=== PATIENT | male | born 1985 | race African-American/Black ===

== ENCOUNTER → 2017-02-23 | Outpatient (CLI) | payer MEDICARE, OTHER ==
[~2017-02-23] MED LIST: HALO2 PO; HYDR25TA PO; LISI10TA7 PO; OLAN10TA3 PO
[2017-02-23 12:26] LABS: BASOPHILS % (AUTO) 0.6 % (0.0-2.0); EOSINOPHILS % (AUTO) 1.6 % (1.0-6.0); HEMOGLOBIN 15.4 g/dL (13.5-17.5); LYMPHOCYTES # (AUTO) 1.8 K/uL (1.0-4.8); LYMPHOCYTES % (AUTO) 27.5 % (22.0-44.0); MEAN CORPUSCULAR HEMOGLOBIN 30.6 pg (26.0-34.0); MEAN CORPUSCULAR HGB CONC 34.2 G/dL (31.0-37.0); MEAN CORPUSCULAR VOLUME 89 fL (80-100); MONOCYTES # (AUTO) 0.6 K/uL (0.1-1.0); MONOCYTES % (AUTO) 9.3 % (2.0-9.0); PLATELET COUNT (AUTO) 233 K/uL (150-450); RED BLOOD CELL COUNT(AUTO) 5.04 MIL/uL (4.50-5.90); WHITE BLOOD COUNT (AUTO) 6.5 K/uL (4.5-11.0)
[2017-02-23 12:35] LABS: ALANINE AMINOTRANSFERASE 57 U/L (12-78); ALBUMIN 4.1 g/dL (3.4-5.0); ANION GAP 9 mmol/L (8-16); ASPARTATE AMINOTRANSFERASE 42 U/L (15-37); BILIRUBIN,TOTAL 0.4 mg/dL (0.1-1.0); CARBON DIOXIDE 28 mmol/L (22-29); CHLORIDE 102 mmol/L (98-107); CHOL/HDL RATIO 6.2 (4.2-7.3); CREATININE 1.17 mg/dL (0.60-1.30); GLOMERULAR FILTR. RATE CALC > 60 mL/min (>60); POTASSIUM 3.6 mmol/L (3.5-5.1); SODIUM SERUM 139 mmol/L (136-145); TOTAL PROTEIN, SERUM 7.7 g/dL (6.4-8.2); UREA NITROGEN, BLOOD 18 mg/dL (7-18)
[2017-02-23 13:08] LABS: B-TYPE NATRIURETIC PEPTIDE < 5 pg/mL (0-100)
== END | disposition home or self-care (01) ==
LOC: LABPV 11:24
PROVIDERS: ATTEND Internal Medicine Cardiovascular Disease
DX: I11.0 Hypertensive heart disease with heart failure (principal); I50.9 Heart failure, unspecified; E11.8 Type 2 diabetes mellitus with unspecified complications; E55.9 Vitamin D deficiency, unspecified

== ENCOUNTER 2017-12-11 00:25 | Inpatient (IN) | payer MEDICARE, MEDICAID ==
[~2017-12-11] VITALS: Ht 180.3 cm; Wt 103.9 kg
[2017-12-11] MEDS ORDERED: PRAZ1 PO (01:09)
[2017-12-11] MEDS ORDERED: CITA-106 PO ×2 (01:09→10:06)
[2017-12-11] MEDS ORDERED: LURA60TA PO ×2 (01:09→10:04)
[2017-12-11] MEDS ORDERED: MINO50TA PO (01:09)
[2017-12-11 02:54] LABS: AMPHET/METH SCREEN,URINE NEGATIVE (NEGATIVE); BARBITURATE SCREEN, URINE NEGATIVE (NEGATIVE); BENZODIAZEPINES SCREEN,URINE NEGATIVE (NEGATIVE); CANNABINOID SCREEN,URINE NEGATIVE (NEGATIVE); COCAINE SCREEN,URINE NEGATIVE (NEGATIVE); METHADONE SCREEN, URINE NEGATIVE (NEGATIVE); OPIATE SCREEN,URINE NEGATIVE (NEGATIVE)
[2017-12-11 03:01] LABS: PHENCYCLIDINE SCREEN,URINE NEGATIVE (NEGATIVE)
[2017-12-11] MEDS ORDERED: LORazepam 2 MG/ML VIAL ONE (06:15)
[2017-12-11] MEDS ORDERED: DiphenhydrAMINE HCL 50 MG/ML VIAL IM ONE (06:15)
[2017-12-11] MEDS ORDERED: HALOPERIDOL LACTATE 5 MG/ML VIAL IM ONE (06:15)
[2017-12-11] MEDS ORDERED: LORazepam 2 MG/ML VIAL IM ONE (06:15)
[2017-12-11] MEDS ORDERED: DiphenhydrAMINE HCL 50 MG/ML VIAL ONE (06:16)
[2017-12-11] MEDS ORDERED: HALOPERIDOL LACTATE 5 MG/ML VIAL ONE (06:16)
[2017-12-11] MEDS ORDERED: AMLO-512 PO ×2 (07:11→10:08)
[2017-12-11] MEDS ORDERED: OLAN5TAB2 PO (10:04)
[2017-12-11] MEDS ORDERED: LISI-662 PO (10:04)
[2017-12-11] MEDS ORDERED: MINO50CA36 PO (10:04)
[2017-12-11] MEDS ORDERED: PRAZ2 PO (10:04)
[2017-12-11] MEDS ORDERED: HYDR25TA PO (10:04)
[2017-12-11] MEDS ORDERED: CARV12 PO (10:08)
[2017-12-11] MEDS ORDERED: IBUPROFEN 400 MG TABLET PO PRN (15:45)
[2017-12-11] MEDS ORDERED: LOPERAMIDE HCL 2 MG CAPSULE PO PRN (15:45)
[2017-12-11] MEDS ORDERED: MAGNESIUM HYDROXIDE SUSPENSION 30 ML UDCUP PO PRN (15:45)
[2017-12-11] MEDS ORDERED: MAG HYDROX/AL HYDROX/SIMETH ES 30 ML SUSPENSION UDCUP PO PRN (15:45)
[2017-12-11] MEDS ORDERED: ACETAMINOPHEN 325 MG TABLET PO PRN (15:45)
[2017-12-11] MEDS ORDERED: ONDANSETRON HCL 4 MG TABLET PO PRN (15:45)
[2017-12-11] MEDS ORDERED: PETROLATUM,WHITE 71 GM JELLY TP PRN (15:45)
[2017-12-11] MEDS ORDERED: ALBUTEROL SULFATE HFA 90 MCG/PUFF 8 GM INHALER IH PRN (15:45)
[2017-12-11] MEDS ORDERED: CloNIDine HCL 0.1 MG TABLET PO PRN (15:45)
[2017-12-11] MEDS ORDERED: DOCUSATE SODIUM 100 MG CAPSULE PO PRN (15:45)
[2017-12-11] MEDS: LORazepam 2 MG TABLET PO PRN (19:47)
[2017-12-11] MEDS: LISINOPRIL 20 MG TABLET PO SCH (19:47)
[2017-12-11 19:55] VITALS: BP 165/91
[2017-12-11 21:00] VITALS: BP 137/88
[2017-12-11] MEDS: ZOLPIDEM TARTRATE 10 MG TABLET PO PRN (22:23)
[2017-12-12 02:19] VITALS: BP 139/90
[2017-12-12 08:39] VITALS: BP 143/96
[2017-12-12] MEDS: LISINOPRIL 20 MG TABLET PO SCH ×2 (08:40→16:40)
[2017-12-12] MEDS: AmLODIPine BESYLATE 10 MG TABLET PO SCH (08:40)
[2017-12-12] MEDS: CARVEDILOL 12.5 MG TABLET PO SCH (08:41)
[2017-12-12] MEDS: MINOCYCLINE HCL 50 MG CAPSULE PO SCH (08:42)
[2017-12-12] MEDS: NICOTINE 14 MG/24 HOUR PATCH TD SCH (08:43)
[2017-12-12 09:24] LABS: BASOPHILS % (AUTO) 0.5 % (0.0-2.0); EOSINOPHILS % (AUTO) 0.7 % (1.0-6.0); HEMATOCRIT 39.5 % (41-53); LYMPHOCYTES # (AUTO) 1.9 K/uL (1.0-4.8); LYMPHOCYTES % (AUTO) 19.5 % (22.0-44.0); MEAN CORPUSCULAR HGB CONC 35.4 G/dL (31.0-37.0); MEAN CORPUSCULAR VOLUME 88 fL (80-100); MONOCYTES # (AUTO) 1.1 K/uL (0.1-1.0); MONOCYTES % (AUTO) 11.9 % (2.0-9.0); NEUTROPHILS # (AUTO) 6.4 K/uL (1.8-7.7); NEUTROPHILS % (AUTO) 67.4 % (40.0-70.0); PLATELET COUNT (AUTO) 267 K/uL (150-450); RED CELL DISTRIBUTION WIDTH 12.7 % (11.5-14.5)
[2017-12-12 09:37] LABS: HEMOGLOBIN A1C 5.6 % (4.5-6.2)
[2017-12-12 09:58] LABS: ALANINE AMINOTRANSFERASE 85 U/L (12-78); ALBUMIN 3.8 g/dL (3.4-5.0); ALKALINE PHOSPHATASE 90 U/L (46-116); ANION GAP 10 mmol/L (8-16); ASPARTATE AMINOTRANSFERASE 128 U/L (15-37); BILIRUBIN,TOTAL 0.5 mg/dL (0.1-1.0); CALCIUM, TOTAL 9.1 mg/dL (8.8-10.5); CARBON DIOXIDE 26 mmol/L (22-29); CHLORIDE 99 mmol/L (98-107); CHOL/HDL RATIO 5.1 (4.2-7.3); CHOLESTEROL 133 mg/dL (131-200); CREATININE 0.96 mg/dL (0.60-1.30); GLOMERULAR FILTR. RATE CALC > 60 mL/min (>60); GLUCOSE,RANDOM 111 mg/dL (70-110); HDL CHOLESTEROL 26 mg/dL (40-60); LDL CHOL (CALC.) 89 mg/dL (0-130); POTASSIUM 3.4 mmol/L (3.5-5.1); SODIUM SERUM 135 mmol/L (136-145); THYROID STIMULATING HORMONE 1.51 uIU/mL (0.36-3.74); TOTAL PROTEIN, SERUM 7.6 g/dL (6.4-8.2); TRIGLYCERIDES 90 mg/dL (15-150); UREA NITROGEN, BLOOD 13 mg/dL (7-18)
[2017-12-12] MEDS: ARIPiprazole 15 MG TABLET PO SCH (10:27)
[2017-12-12] MEDS: CITALOPRAM HYDROBROMIDE 20 MG TABLET PO SCH (10:27)
[2017-12-12 16:00] VITALS: BP 135/87
[2017-12-12] MEDS ORDERED: POTASSIUM CHLORIDE 20 MEQ ER TABLET PO ONE (16:15)
[2017-12-12] MEDS: LORazepam 2 MG TABLET PO PRN (16:40)
[2017-12-12] MEDS: ZOLPIDEM TARTRATE 10 MG TABLET PO PRN (21:17)
[2017-12-12] MEDS: OLANZapine 10 MG TABLET PO SCH (21:17)
[2017-12-13 05:54] VITALS: BP 142/88
[2017-12-13 08:05] VITALS: BP 160/96
[2017-12-13] MEDS: ARIPiprazole 15 MG TABLET PO SCH (08:32)
[2017-12-13] MEDS: CARVEDILOL 12.5 MG TABLET PO SCH (08:32)
[2017-12-13] MEDS: CITALOPRAM HYDROBROMIDE 20 MG TABLET PO SCH (08:32)
[2017-12-13] MEDS: LISINOPRIL 20 MG TABLET PO SCH ×2 (08:32→16:36)
[2017-12-13] MEDS: AmLODIPine BESYLATE 10 MG TABLET PO SCH (08:32)
[2017-12-13] MEDS: NICOTINE 14 MG/24 HOUR PATCH TD SCH (08:33)
[2017-12-13] MEDS: MINOCYCLINE HCL 50 MG CAPSULE PO SCH (08:33)
[2017-12-13] MEDS ORDERED: POTASSIUM CHLORIDE 20 MEQ ER TABLET PO ONE (09:15)
[2017-12-13 20:46] VITALS: BP 145/97
[2017-12-13] MEDS: ZOLPIDEM TARTRATE 10 MG TABLET PO PRN (21:29)
[2017-12-13] MEDS: OLANZapine 10 MG TABLET PO SCH (21:29)
[2017-12-14 00:20] VITALS: BP 130/95
[2017-12-14 08:08] VITALS: BP 139/90
[2017-12-14] MEDS: NICOTINE 14 MG/24 HOUR PATCH TD SCH (09:00)
[2017-12-14] MEDS: ARIPiprazole 15 MG TABLET PO SCH (09:06)
[2017-12-14] MEDS: CITALOPRAM HYDROBROMIDE 20 MG TABLET PO SCH (09:06)
[2017-12-14] MEDS: LISINOPRIL 20 MG TABLET PO SCH ×2 (09:06→16:49)
[2017-12-14] MEDS: CARVEDILOL 12.5 MG TABLET PO SCH (09:06)
[2017-12-14] MEDS: AmLODIPine BESYLATE 10 MG TABLET PO SCH (09:06)
[2017-12-14] MEDS: MINOCYCLINE HCL 50 MG CAPSULE PO SCH (09:06)
[2017-12-14 16:00] VITALS: BP 143/87
[2017-12-14] MEDS: LORazepam 2 MG TABLET PO PRN ×2 (16:49→20:58)
[2017-12-14] MEDS: OLANZapine 10 MG TABLET PO SCH (20:58)
[2017-12-14] MEDS: ZOLPIDEM TARTRATE 10 MG TABLET PO PRN (20:59)
[2017-12-15 06:38] VITALS: BP 136/86
[2017-12-15 08:28] VITALS: BP 140/89
[2017-12-15] MEDS: NICOTINE 14 MG/24 HOUR PATCH TD SCH (09:00)
[2017-12-15] MEDS: ARIPiprazole 15 MG TABLET PO SCH (09:04)
[2017-12-15] MEDS: CARVEDILOL 12.5 MG TABLET PO SCH (09:04)
[2017-12-15] MEDS: AmLODIPine BESYLATE 10 MG TABLET PO SCH (09:04)
[2017-12-15] MEDS: CITALOPRAM HYDROBROMIDE 20 MG TABLET PO SCH (09:04)
[2017-12-15] MEDS: LISINOPRIL 20 MG TABLET PO SCH ×2 (09:04→16:38)
[2017-12-15] MEDS: MINOCYCLINE HCL 50 MG CAPSULE PO SCH (09:05)
[2017-12-15] MEDS: LORazepam 2 MG TABLET PO PRN ×2 (16:38→20:55)
[2017-12-15] MEDS: HALOPERIDOL 5 MG TABLET PO PRN (16:38)
[2017-12-15 18:00] VITALS: BP 135/85
[2017-12-15] MEDS: ZOLPIDEM TARTRATE 10 MG TABLET PO PRN (20:55)
[2017-12-15] MEDS: OLANZapine 10 MG TABLET PO SCH (20:55)
[2017-12-16 05:10] VITALS: BP 138/78
[2017-12-16 08:26] VITALS: BP 146/99
[2017-12-16] MEDS: MINOCYCLINE HCL 50 MG CAPSULE PO SCH (08:34)
[2017-12-16] MEDS: CARVEDILOL 12.5 MG TABLET PO SCH (08:35)
[2017-12-16] MEDS: AmLODIPine BESYLATE 10 MG TABLET PO SCH (08:35)
[2017-12-16] MEDS: CITALOPRAM HYDROBROMIDE 20 MG TABLET PO SCH (08:35)
[2017-12-16] MEDS: ARIPiprazole 15 MG TABLET PO SCH (08:35)
[2017-12-16] MEDS: LISINOPRIL 20 MG TABLET PO SCH ×2 (08:35→16:31)
[2017-12-16] MEDS: NICOTINE 14 MG/24 HOUR PATCH TD SCH (08:41)
[2017-12-16 16:00] VITALS: BP 144/90
[2017-12-16] MEDS: HALOPERIDOL 5 MG TABLET PO PRN (16:31)
[2017-12-16] MEDS: LORazepam 2 MG TABLET PO PRN ×2 (16:32→20:48)
[2017-12-16] MEDS: ZOLPIDEM TARTRATE 10 MG TABLET PO PRN (20:48)
[2017-12-16] MEDS: OLANZapine 10 MG TABLET PO SCH (20:48)
[2017-12-17 03:59] VITALS: BP 142/90
[2017-12-17 07:52] VITALS: BP 132/78
[2017-12-17] MEDS: LISINOPRIL 20 MG TABLET PO SCH ×2 (08:49→16:17)
[2017-12-17] MEDS: MINOCYCLINE HCL 50 MG CAPSULE PO SCH (08:49)
[2017-12-17] MEDS: AmLODIPine BESYLATE 10 MG TABLET PO SCH (08:49)
[2017-12-17] MEDS: CARVEDILOL 12.5 MG TABLET PO SCH (08:49)
[2017-12-17] MEDS: NICOTINE 14 MG/24 HOUR PATCH TD SCH (08:49)
[2017-12-17] MEDS: CITALOPRAM HYDROBROMIDE 20 MG TABLET PO SCH (08:49)
[2017-12-17] MEDS: ARIPiprazole 15 MG TABLET PO SCH (08:49)
[2017-12-17 13:05] VITALS: BP 132/78
[2017-12-17] MEDS: OLANZapine 10 MG TABLET PO SCH (20:35)
[2017-12-17 21:20] VITALS: BP 170/93
[2017-12-18 00:07] VITALS: BP 138/92
[2017-12-18 08:45] VITALS: BP 138/96
[2017-12-18] MEDS: NICOTINE 14 MG/24 HOUR PATCH TD SCH (09:00)
[2017-12-18] MEDS: MINOCYCLINE HCL 50 MG CAPSULE PO SCH (10:19)
[2017-12-18] MEDS: CARVEDILOL 12.5 MG TABLET PO SCH (10:19)
[2017-12-18] MEDS: LISINOPRIL 20 MG TABLET PO SCH ×2 (10:19→17:19)
[2017-12-18] MEDS: AmLODIPine BESYLATE 10 MG TABLET PO SCH (10:19)
[2017-12-18] MEDS: CITALOPRAM HYDROBROMIDE 20 MG TABLET PO SCH (10:19)
[2017-12-18] MEDS: ARIPiprazole 15 MG TABLET PO SCH (10:19)
[2017-12-18 16:13] VITALS: BP 144/84
[2017-12-18] MEDS: OLANZapine 10 MG TABLET PO SCH (20:54)
[2017-12-19 03:26] VITALS: BP 150/93
[2017-12-19 08:09] VITALS: BP 158/88
[2017-12-19] MEDS: CARVEDILOL 12.5 MG TABLET PO SCH (08:48)
[2017-12-19] MEDS: CITALOPRAM HYDROBROMIDE 20 MG TABLET PO SCH (08:48)
[2017-12-19] MEDS: ARIPiprazole 15 MG TABLET PO SCH (08:48)
[2017-12-19] MEDS: LISINOPRIL 20 MG TABLET PO SCH ×2 (08:48→17:00)
[2017-12-19] MEDS: AmLODIPine BESYLATE 10 MG TABLET PO SCH (08:48)
[2017-12-19] MEDS: MINOCYCLINE HCL 50 MG CAPSULE PO SCH (08:49)
[2017-12-19 10:07] VITALS: BP 145/89
[2017-12-19 16:09] VITALS: BP 148/90
[2017-12-19] MEDS: HALOPERIDOL 5 MG TABLET PO PRN (17:00)
[2017-12-19] MEDS: LORazepam 2 MG TABLET PO PRN (17:00)
[2017-12-19] MEDS: ZOLPIDEM TARTRATE 10 MG TABLET PO PRN (21:04)
[2017-12-19] MEDS: OLANZapine 10 MG TABLET PO SCH (21:04)
[2017-12-20 06:05] VITALS: BP 140/89
[2017-12-20 08:48] VITALS: BP 151/92
[2017-12-20] MEDS: MINOCYCLINE HCL 50 MG CAPSULE PO SCH (09:00)
[2017-12-20] MEDS: LISINOPRIL 20 MG TABLET PO SCH ×2 (09:00→16:51)
[2017-12-20] MEDS: ARIPiprazole 15 MG TABLET PO SCH (09:00)
[2017-12-20] MEDS: CITALOPRAM HYDROBROMIDE 20 MG TABLET PO SCH (09:00)
[2017-12-20] MEDS: CARVEDILOL 12.5 MG TABLET PO SCH (09:00)
[2017-12-20] MEDS: AmLODIPine BESYLATE 10 MG TABLET PO SCH (09:00)
[2017-12-20] MEDS ORDERED: DiphenhydrAMINE HCL 50 MG/ML VIAL ONE (13:49)
[2017-12-20] MEDS ORDERED: LORazepam 2 MG/ML VIAL ONE (13:49)
[2017-12-20] MEDS ORDERED: HALOPERIDOL LACTATE 5 MG/ML VIAL ONE (13:49)
[2017-12-20] MEDS ORDERED: HALOPERIDOL LACTATE 5 MG/ML VIAL IM ONE (14:00)
[2017-12-20] MEDS ORDERED: LORazepam 2 MG/ML VIAL IM ONE (14:00)
[2017-12-20] MEDS ORDERED: DiphenhydrAMINE HCL 50 MG/ML VIAL IM ONE (14:00)
[2017-12-20 15:04] VITALS: BP 163/97
[2017-12-20 16:00] VITALS: BP 141/88
[2017-12-20] MEDS: LORazepam 2 MG TABLET PO PRN (16:51)
[2017-12-20] MEDS: HALOPERIDOL 5 MG TABLET PO PRN (16:51)
[2017-12-20] MEDS: OLANZapine 10 MG TABLET PO SCH (21:00)
[2017-12-21 06:02] VITALS: BP 144/91
[2017-12-21 08:26] VITALS: BP 153/96
[2017-12-21] MEDS: LORazepam 2 MG TABLET PO PRN ×2 (08:46→16:40)
[2017-12-21] MEDS: ARIPiprazole 15 MG TABLET PO SCH (08:46)
[2017-12-21] MEDS: AmLODIPine BESYLATE 10 MG TABLET PO SCH (08:46)
[2017-12-21] MEDS: LISINOPRIL 20 MG TABLET PO SCH ×2 (08:46→16:40)
[2017-12-21] MEDS: CARVEDILOL 12.5 MG TABLET PO SCH (08:46)
[2017-12-21] MEDS: CITALOPRAM HYDROBROMIDE 20 MG TABLET PO SCH (08:46)
[2017-12-21] MEDS: MINOCYCLINE HCL 50 MG CAPSULE PO SCH (08:46)
[2017-12-21 13:05] VITALS: BP 138/78
[2017-12-21 16:00] VITALS: BP 142/84
[2017-12-21] MEDS: HALOPERIDOL 5 MG TABLET PO PRN (16:40)
[2017-12-21] MEDS: OLANZapine 10 MG TABLET PO SCH (20:46)
[2017-12-21] MEDS: ZOLPIDEM TARTRATE 10 MG TABLET PO PRN (20:46)
[2017-12-22 05:28] VITALS: BP 148/78
[2017-12-22] MEDS: ARIPiprazole 15 MG TABLET PO SCH (08:04)
[2017-12-22] MEDS: CITALOPRAM HYDROBROMIDE 20 MG TABLET PO SCH (08:05)
[2017-12-22] MEDS: CARVEDILOL 12.5 MG TABLET PO SCH (08:05)
[2017-12-22] MEDS: MINOCYCLINE HCL 50 MG CAPSULE PO SCH (08:05)
[2017-12-22] MEDS: AmLODIPine BESYLATE 10 MG TABLET PO SCH (08:05)
[2017-12-22] MEDS: LISINOPRIL 20 MG TABLET PO SCH (08:06)
[2017-12-22 08:08] VITALS: BP 160/84
[2017-12-22 10:12] VITALS: BP 143/98
[2017-12-22] MEDS ORDERED: OLAN10TA3 PO (10:56)
[2017-12-22] MEDS ORDERED: ARIP15TA2 PO (10:56)
[2017-12-22] MEDS ORDERED: CITA-106 PO (10:58)
== END 2017-12-22 15:40 | disposition home or self-care (01) | DRG 885 ==
LOC: EMS 00:25 → B3A 16:57
PROVIDERS: ADMIT Psychiatry & Neurology Psychiatry; ATTEND Psychiatry & Neurology Psychiatry
DX: F20.0 Paranoid schizophrenia (principal); D64.9 Anemia, unspecified; E03.9 Hypothyroidism, unspecified; E87.5 Hyperkalemia; E87.6 Hypokalemia; F17.200 Nicotine dependence, unspecified, uncomplicated; I10 Essential (primary) hypertension; J45.909 Unspecified asthma, uncomplicated; K21.9 Gastro-esophageal reflux disease without esophagitis; M19.90 Unspecified osteoarthritis, unspecified site; Z79.899 Other long term (current) drug therapy; Z81.8 Family history of other mental and behavioral disorders; Z91.14 Patient's other noncompliance with medication regimen
CPT/HCPCS: 80074; 83036; 84132; 84443; 96372; 99285; J1200; J1630; J2060

== ENCOUNTER 2017-12-20 19:09 | Emergency (ER) | payer MEDICAID, MEDICARE ==
[~2017-12-20] VITALS: Ht 180.3 cm; Wt 109.1 kg
[~2017-12-20 19:09] MED LIST changes: +AMLO-512 PO; +CARV12 PO; +CITA-106 PO; -HALO2 PO; +LISI-662 PO; -LISI10TA7 PO; +LURA60TA PO; +MINO50CA36 PO; -OLAN10TA3 PO; +OLAN5TAB2 PO; +PRAZ1 PO
[2017-12-20 22:29] VITALS: BP 122/78
== END 2017-12-20 22:50 | disposition home or self-care (01) ==
LOC: EMS 19:11
DX: S00.531A Contusion of lip, initial encounter (principal); I10 Essential (primary) hypertension; F20.9 Schizophrenia, unspecified; Z79.899 Other long term (current) drug therapy; Y04.0XXA Assault by unarmed brawl or fight, initial encounter; Y93.89 Activity, other specified; Y92.89 Other specified places as the place of occurrence of the external cause; Y99.8 Other external cause status
CPT/HCPCS: 70110; 99284

== ENCOUNTER 2019-02-18 06:44 | Inpatient (IN) | payer MEDICARE ==
[~2019-02-18] VITALS: Ht 182.9 cm; Wt 101.7 kg
[~2019-02-18 06:44] MED LIST changes: -AMLO-512 PO; +AMLO10TA7 PO; +ARIP15TA2 PO; -HYDR25TA PO; -LURA60TA PO; +OLAN10TA3 PO; -OLAN5TAB2 PO; -PRAZ1 PO
[2019-02-18 07:33] LABS: AMPHET/METH SCREEN,URINE NEGATIVE (NEGATIVE); BARBITURATE SCREEN, URINE NEGATIVE (NEGATIVE); BENZODIAZEPINES SCREEN,URINE NEGATIVE (NEGATIVE); CANNABINOID SCREEN,URINE NEGATIVE (NEGATIVE); COCAINE SCREEN,URINE NEGATIVE (NEGATIVE); METHADONE SCREEN, URINE NEGATIVE (NEGATIVE); OPIATE SCREEN,URINE NEGATIVE (NEGATIVE)
[2019-02-18 07:36] LABS: PHENCYCLIDINE SCREEN,URINE NEGATIVE (NEGATIVE)
[2019-02-18 07:42] LABS: BASOPHILS % (AUTO) 0.5 % (0.0-2.0); EOSINOPHILS % (AUTO) 2.2 % (1.0-6.0); HEMATOCRIT 46.1 % (41-53); HEMOGLOBIN 15.6 g/dL (13.5-17.5); LYMPHOCYTES # (AUTO) 1.3 K/uL (1.0-4.8); LYMPHOCYTES % (AUTO) 13.3 % (22.0-44.0); MEAN CORPUSCULAR HEMOGLOBIN 30.5 pg (26.0-34.0); MEAN CORPUSCULAR HGB CONC 33.7 G/dL (31.0-37.0); MEAN CORPUSCULAR VOLUME 90 fL (80-100); MONOCYTES # (AUTO) 0.6 K/uL (0.1-1.0); MONOCYTES % (AUTO) 6.4 % (2.0-9.0); NEUTROPHILS # (AUTO) 7.4 K/uL (1.8-7.7); NEUTROPHILS % (AUTO) 77.6 % (40.0-70.0); PLATELET COUNT (AUTO) 269 K/uL (150-450); RED BLOOD CELL COUNT(AUTO) 5.11 MIL/uL (4.50-5.90); RED CELL DISTRIBUTION WIDTH 13.4 % (11.5-14.5)
[2019-02-18 08:02] LABS: ANION GAP 11 mmol/L (8-16); CALCIUM, TOTAL 9.7 mg/dL (8.8-10.5); CARBON DIOXIDE 28 mmol/L (22-29); CHLORIDE 98 mmol/L (98-107); CREATININE 1.13 mg/dL (0.60-1.30); GLOMERULAR FILTR. RATE CALC > 60 mL/min (>60); GLUCOSE,RANDOM 115 mg/dL (70-110); POTASSIUM 3.2 mmol/L (3.5-5.1); SODIUM SERUM 137 mmol/L (136-145); UREA NITROGEN, BLOOD 12 mg/dL (7-18)
[2019-02-18 08:13] LABS: ALANINE AMINOTRANSFERASE 38 U/L (12-78); ALBUMIN 4.4 g/dL (3.4-5.0); ALKALINE PHOSPHATASE 85 U/L (46-116); ASPARTATE AMINOTRANSFERASE 39 U/L (15-37); BILIRUBIN,TOTAL 0.6 mg/dL (0.1-1.0); TOTAL PROTEIN, SERUM 8.4 g/dL (6.4-8.2)
[2019-02-18] MEDS ORDERED: HALOPERIDOL LACTATE 5 MG/ML VIAL IM ONE (09:15)
[2019-02-18] MEDS ORDERED: DiphenhydrAMINE HCL 50 MG/ML VIAL IM ONE (09:15)
[2019-02-18] MEDS ORDERED: POTASSIUM CHLORIDE 10% 40 MEQ/30 ML LIQUID UDCUP PO ONE (10:15)
[2019-02-18 19:19] VITALS: BP 147/98
[2019-02-18] MEDS: OLANZapine 7.5 MG TABLET PO SCH (20:16)
[2019-02-18] MEDS: VALPROIC ACID 250 MG/5 ML SYRUP UDCUP PO SCH (20:16)
[2019-02-18] MEDS: ZOLPIDEM TARTRATE 10 MG TABLET PO PRN (20:45)
[2019-02-19] MEDS ORDERED: DOCUSATE SODIUM 100 MG CAPSULE PO PRN
[2019-02-19] MEDS ORDERED: ONDANSETRON HCL 4 MG TABLET PO PRN
[2019-02-19] MEDS ORDERED: NICOTINE 14 MG/24 HOUR PATCH TD PRN
[2019-02-19] MEDS ORDERED: LOPERAMIDE HCL 2 MG CAPSULE PO PRN
[2019-02-19] MEDS ORDERED: IBUPROFEN 400 MG TABLET PO PRN
[2019-02-19] MEDS ORDERED: CloNIDine HCL 0.1 MG TABLET PO PRN
[2019-02-19] MEDS ORDERED: MAGNESIUM HYDROXIDE SUSPENSION 30 ML UDCUP PO PRN
[2019-02-19] MEDS ORDERED: ALBUTEROL SULFATE HFA 90 MCG/PUFF 8 GM INHALER IH PRN
[2019-02-19] MEDS ORDERED: ACETAMINOPHEN 325 MG TABLET PO PRN
[2019-02-19] MEDS ORDERED: PETROLATUM,WHITE 28 GM JELLY TP PRN
[2019-02-19] MEDS ORDERED: GuaiFENesin/D-METHORPHAN [SUGAR-FREE] 200-20MG/10 ML SYRUP UDCUP PO PRN
[2019-02-19] MEDS: HALOPERIDOL 5 MG TABLET PO PRN (01:44)
[2019-02-19] MEDS: LORazepam 2 MG TABLET PO PRN ×2 (01:44→17:01)
[2019-02-19] MEDS ORDERED: INFLUENZA VIRUS VACCINE QVS 2019-20 (3YR+)/PF 60 MCG/0.5 ML SYRINGE IM ONE (05:45)
[2019-02-19] MEDS ORDERED: PNEUMOCOCCAL VACCINE POLYVALENT 0.5 ML VIAL [PPSV23] IM ONE (05:45)
[2019-02-19] MEDS: VALPROIC ACID 250 MG/5 ML SYRUP UDCUP PO SCH ×2 (08:44→21:04)
[2019-02-19] MEDS: LISINOPRIL 20 MG TABLET PO SCH ×2 (08:45→17:01)
[2019-02-19] MEDS: CARVEDILOL 12.5 MG TABLET PO SCH (08:45)
[2019-02-19] MEDS: AmLODIPine BESYLATE 10 MG TABLET PO SCH (08:45)
[2019-02-19 08:46] VITALS: BP 151/98
[2019-02-19 16:06] VITALS: BP 142/94
[2019-02-19] MEDS: OLANZapine 7.5 MG TABLET PO SCH (21:03)
[2019-02-20] MEDS: LORazepam 2 MG TABLET PO PRN (08:08)
[2019-02-20] MEDS: HALOPERIDOL 5 MG TABLET PO PRN (08:08)
[2019-02-20] MEDS: AmLODIPine BESYLATE 10 MG TABLET PO SCH (08:08)
[2019-02-20] MEDS: LISINOPRIL 20 MG TABLET PO SCH ×2 (08:08→16:32)
[2019-02-20] MEDS: CARVEDILOL 12.5 MG TABLET PO SCH (08:08)
[2019-02-20] MEDS: VALPROIC ACID 250 MG/5 ML SYRUP UDCUP PO SCH ×2 (08:08→20:23)
[2019-02-20] MEDS ORDERED: OLAN7.5T2 PO (11:02)
[2019-02-20] MEDS: OLANZapine 5 MG TABLET PO SCH (11:29)
[2019-02-20 11:59] VITALS: BP 143/90
[2019-02-20 16:37] VITALS: BP 153/91
[2019-02-20] MEDS: OLANZapine 7.5 MG TABLET PO SCH (20:23)
[2019-02-21 08:56] VITALS: BP 144/101
[2019-02-21] MEDS: CARVEDILOL 12.5 MG TABLET PO SCH (09:21)
[2019-02-21] MEDS: OLANZapine 5 MG TABLET PO SCH (09:21)
[2019-02-21] MEDS: LISINOPRIL 20 MG TABLET PO SCH ×2 (09:21→16:44)
[2019-02-21] MEDS: AmLODIPine BESYLATE 10 MG TABLET PO SCH (09:21)
[2019-02-21] MEDS: VALPROIC ACID 250 MG/5 ML SYRUP UDCUP PO SCH ×2 (09:21→20:58)
[2019-02-21] MEDS: MAG HYDROX/AL HYDROX/SIMETH ES 30 ML SUSPENSION UDCUP PO PRN (13:53)
[2019-02-21 16:43] VITALS: BP 145/87
[2019-02-21] MEDS: LORazepam 2 MG TABLET PO PRN (16:44)
[2019-02-21] MEDS: HALOPERIDOL 5 MG TABLET PO PRN (16:44)
[2019-02-21] MEDS: OLANZapine 7.5 MG TABLET PO SCH (20:58)
[2019-02-21] MEDS: ZOLPIDEM TARTRATE 10 MG TABLET PO PRN (20:58)
[2019-02-22 08:04] VITALS: BP 145/99
[2019-02-22] MEDS: OLANZapine 5 MG TABLET PO SCH (10:05)
[2019-02-22] MEDS: AmLODIPine BESYLATE 10 MG TABLET PO SCH (10:05)
[2019-02-22] MEDS: LISINOPRIL 20 MG TABLET PO SCH ×2 (10:05→16:19)
[2019-02-22] MEDS: CARVEDILOL 12.5 MG TABLET PO SCH (10:05)
[2019-02-22] MEDS: VALPROIC ACID 250 MG/5 ML SYRUP UDCUP PO SCH ×2 (10:06→20:15)
[2019-02-22 16:45] VITALS: BP 138/86
[2019-02-22] MEDS: OLANZapine 7.5 MG TABLET PO SCH (20:15)
[2019-02-23 08:00] VITALS: BP 146/102
[2019-02-23] MEDS: LISINOPRIL 20 MG TABLET PO SCH ×2 (08:15→16:05)
[2019-02-23] MEDS: VALPROIC ACID 250 MG/5 ML SYRUP UDCUP PO SCH ×2 (08:15→20:32)
[2019-02-23] MEDS: OLANZapine 5 MG TABLET PO SCH (08:15)
[2019-02-23] MEDS: AmLODIPine BESYLATE 10 MG TABLET PO SCH (08:15)
[2019-02-23] MEDS: CARVEDILOL 12.5 MG TABLET PO SCH (08:17)
[2019-02-23] MEDS: HALOPERIDOL 5 MG TABLET PO PRN (15:49)
[2019-02-23] MEDS: MAG HYDROX/AL HYDROX/SIMETH ES 30 ML SUSPENSION UDCUP PO PRN (15:49)
[2019-02-23] MEDS: OLANZapine 7.5 MG TABLET PO SCH (20:32)
[2019-02-23 21:22] VITALS: BP 136/90
[2019-02-24 08:00] VITALS: BP 154/99
[2019-02-24] MEDS: HALOPERIDOL 5 MG TABLET PO PRN (08:06)
[2019-02-24] MEDS: LORazepam 2 MG TABLET PO PRN (08:07)
[2019-02-24] MEDS: VALPROIC ACID 250 MG/5 ML SYRUP UDCUP PO SCH ×2 (08:07→20:28)
[2019-02-24] MEDS: AmLODIPine BESYLATE 10 MG TABLET PO SCH (08:07)
[2019-02-24] MEDS: LISINOPRIL 20 MG TABLET PO SCH ×2 (08:07→16:47)
[2019-02-24] MEDS: CARVEDILOL 12.5 MG TABLET PO SCH (08:07)
[2019-02-24] MEDS: OLANZapine 5 MG TABLET PO SCH (08:07)
[2019-02-24] MEDS: HydrALAZINE HCL 25 MG TABLET PO SCH (08:07)
[2019-02-24 16:21] VITALS: BP 142/82
[2019-02-24] MEDS: OLANZapine 7.5 MG TABLET PO SCH (20:28)
[2019-02-25] MEDS: VALPROIC ACID 250 MG/5 ML SYRUP UDCUP PO SCH ×2 (08:16→20:17)
[2019-02-25] MEDS: HydrALAZINE HCL 25 MG TABLET PO SCH (08:17)
[2019-02-25] MEDS: LISINOPRIL 20 MG TABLET PO SCH ×2 (08:17→16:33)
[2019-02-25] MEDS: AmLODIPine BESYLATE 10 MG TABLET PO SCH (08:17)
[2019-02-25] MEDS: OLANZapine 5 MG TABLET PO SCH (08:17)
[2019-02-25] MEDS: CARVEDILOL 12.5 MG TABLET PO SCH (08:17)
[2019-02-25 08:51] VITALS: BP 156/97
[2019-02-25 16:21] VITALS: BP 141/92
[2019-02-25] MEDS: OLANZapine 7.5 MG TABLET PO SCH (20:17)
[2019-02-26 09:00] VITALS: BP 155/101
[2019-02-26] MEDS: CARVEDILOL 12.5 MG TABLET PO SCH (10:05)
[2019-02-26] MEDS: AmLODIPine BESYLATE 10 MG TABLET PO SCH (10:05)
[2019-02-26] MEDS: OLANZapine 5 MG TABLET PO SCH (10:06)
[2019-02-26] MEDS: HydrALAZINE HCL 25 MG TABLET PO SCH (10:06)
[2019-02-26] MEDS: LISINOPRIL 20 MG TABLET PO SCH ×2 (10:09→16:25)
[2019-02-26] MEDS: VALPROIC ACID 250 MG/5 ML SYRUP UDCUP PO SCH ×2 (10:25→21:00)
[2019-02-26 16:25] VITALS: BP 153/96
[2019-02-26] MEDS: OLANZapine 7.5 MG TABLET PO SCH (21:01)
[2019-02-27] MEDS: AmLODIPine BESYLATE 10 MG TABLET PO SCH (08:38)
[2019-02-27] MEDS: OLANZapine 5 MG TABLET PO SCH (08:38)
[2019-02-27] MEDS: LISINOPRIL 20 MG TABLET PO SCH ×2 (08:40→16:26)
[2019-02-27] MEDS: HydrALAZINE HCL 25 MG TABLET PO SCH (08:41)
[2019-02-27] MEDS: VALPROIC ACID 250 MG/5 ML SYRUP UDCUP PO SCH ×2 (08:42→20:15)
[2019-02-27] MEDS: CARVEDILOL 12.5 MG TABLET PO SCH (08:43)
[2019-02-27 09:14] VITALS: BP 141/91
[2019-02-27] MEDS: LORazepam 2 MG TABLET PO PRN (14:31)
[2019-02-27 16:16] VITALS: BP 148/86
[2019-02-27] MEDS: OLANZapine 7.5 MG TABLET PO SCH (20:15)
[2019-02-28 08:06] VITALS: BP 135/101
[2019-02-28] MEDS: OLANZapine 5 MG TABLET PO SCH (08:22)
[2019-02-28] MEDS: AmLODIPine BESYLATE 10 MG TABLET PO SCH (08:22)
[2019-02-28] MEDS: VALPROIC ACID 250 MG/5 ML SYRUP UDCUP PO SCH ×2 (08:22→20:11)
[2019-02-28] MEDS: LISINOPRIL 20 MG TABLET PO SCH ×2 (08:22→16:05)
[2019-02-28] MEDS: CARVEDILOL 12.5 MG TABLET PO SCH (08:22)
[2019-02-28] MEDS: HydrALAZINE HCL 25 MG TABLET PO SCH (08:22)
[2019-02-28] MEDS: HALOPERIDOL 5 MG TABLET PO PRN (16:05)
[2019-02-28 16:43] VITALS: BP 134/91
[2019-02-28] MEDS: OLANZapine 7.5 MG TABLET PO SCH (20:11)
[2019-03-01 08:00] VITALS: BP 151/100
[2019-03-01] MEDS: HydrALAZINE HCL 25 MG TABLET PO SCH (08:04)
[2019-03-01] MEDS: AmLODIPine BESYLATE 10 MG TABLET PO SCH (08:04)
[2019-03-01] MEDS: LISINOPRIL 20 MG TABLET PO SCH ×2 (08:04→17:06)
[2019-03-01] MEDS: OLANZapine 5 MG TABLET PO SCH (08:04)
[2019-03-01] MEDS: LORazepam 2 MG TABLET PO PRN (08:04)
[2019-03-01] MEDS: CARVEDILOL 12.5 MG TABLET PO SCH (08:04)
[2019-03-01] MEDS: VALPROIC ACID 250 MG/5 ML SYRUP UDCUP PO SCH ×2 (08:05→20:41)
[2019-03-01] MEDS: HALOPERIDOL 5 MG TABLET PO PRN (08:05)
[2019-03-01 12:30] VITALS: BP 140/88
[2019-03-01 16:27] VITALS: BP 147/98
[2019-03-01] MEDS: OLANZapine 7.5 MG TABLET PO SCH (20:41)
[2019-03-02 00:30] VITALS: BP 146/97
[2019-03-02] MEDS: LORazepam 2 MG TABLET PO PRN ×2 (03:54→05:35)
[2019-03-02] MEDS: AmLODIPine BESYLATE 10 MG TABLET PO SCH (08:26)
[2019-03-02] MEDS: HydrALAZINE HCL 25 MG TABLET PO SCH (08:26)
[2019-03-02] MEDS: LISINOPRIL 20 MG TABLET PO SCH ×2 (08:26→16:24)
[2019-03-02] MEDS: VALPROIC ACID 250 MG/5 ML SYRUP UDCUP PO SCH ×2 (08:26→20:54)
[2019-03-02] MEDS: CARVEDILOL 12.5 MG TABLET PO SCH (08:29)
[2019-03-02] MEDS: OLANZapine 5 MG TABLET PO SCH (08:42)
[2019-03-02 08:53] VITALS: BP 145/102
[2019-03-02 16:22] VITALS: BP 149/98
[2019-03-02] MEDS: OLANZapine 7.5 MG TABLET PO SCH (20:54)
[2019-03-03] MEDS: AmLODIPine BESYLATE 10 MG TABLET PO SCH (08:24)
[2019-03-03] MEDS: HydrALAZINE HCL 25 MG TABLET PO SCH (08:24)
[2019-03-03] MEDS: CARVEDILOL 12.5 MG TABLET PO SCH (08:24)
[2019-03-03] MEDS: LISINOPRIL 20 MG TABLET PO SCH ×2 (08:24→17:11)
[2019-03-03] MEDS: HYDROCHLOROTHIAZIDE 25 MG TABLET PO SCH (08:25)
[2019-03-03] MEDS: OLANZapine 5 MG TABLET PO SCH (08:25)
[2019-03-03] MEDS: VALPROIC ACID 250 MG/5 ML SYRUP UDCUP PO SCH ×2 (08:33→20:03)
[2019-03-03 09:13] VITALS: BP 154/103
[2019-03-03 16:00] VITALS: BP_SYST 138
[2019-03-03] MEDS: OLANZapine 7.5 MG TABLET PO SCH (20:03)
[2019-03-04 08:00] VITALS: BP 161/105
[2019-03-04] MEDS: OLANZapine 5 MG TABLET PO SCH (08:09)
[2019-03-04] MEDS: VALPROIC ACID 250 MG/5 ML SYRUP UDCUP PO SCH ×2 (08:09→20:10)
[2019-03-04] MEDS: CARVEDILOL 25 MG TABLET PO SCH (08:10)
[2019-03-04] MEDS: HYDROCHLOROTHIAZIDE 25 MG TABLET PO SCH (08:10)
[2019-03-04] MEDS: LISINOPRIL 20 MG TABLET PO SCH ×2 (08:10→16:35)
[2019-03-04] MEDS: HydrALAZINE HCL 25 MG TABLET PO SCH (08:10)
[2019-03-04] MEDS: AmLODIPine BESYLATE 10 MG TABLET PO SCH (08:10)
[2019-03-04] MEDS: OLANZapine 7.5 MG TABLET PO SCH (20:10)
[2019-03-04 22:56] VITALS: BP 145/89
[2019-03-05 08:00] VITALS: BP 152/101
[2019-03-05] MEDS: CARVEDILOL 25 MG TABLET PO SCH (08:00)
[2019-03-05] MEDS: LISINOPRIL 20 MG TABLET PO SCH (08:00)
[2019-03-05] MEDS: HYDROCHLOROTHIAZIDE 25 MG TABLET PO SCH (08:00)
[2019-03-05] MEDS: AmLODIPine BESYLATE 10 MG TABLET PO SCH (08:00)
[2019-03-05] MEDS: HydrALAZINE HCL 25 MG TABLET PO SCH (08:00)
[2019-03-05] MEDS: OLANZapine 5 MG TABLET PO SCH (08:00)
[2019-03-05] MEDS: VALPROIC ACID 250 MG/5 ML SYRUP UDCUP PO SCH (08:01)
[2019-03-05] MEDS ORDERED: VALP250S23 PO (10:50)
[2019-03-05] MEDS ORDERED: OLAN7.5T9 PO (10:50)
[2019-03-05] MEDS ORDERED: CARV25 PO (12:17)
[2019-03-05] MEDS ORDERED: HYDR25TA PO (12:18)
[2019-03-05] MEDS ORDERED: LISI-662 PO (12:19)
[2019-03-05] MEDS ORDERED: HYDR25TA84 PO (12:19)
== END 2019-03-05 12:35 | disposition home or self-care (01) | DRG 885 ==
LOC: EMS 06:45 → 3EC 17:52
DX: F20.0 Paranoid schizophrenia (principal); F31.9 Bipolar disorder, unspecified; I10 Essential (primary) hypertension; E87.6 Hypokalemia; R74.0 Nonspecific elevation of levels of transaminase and lactic acid dehydrogenase [LDH]; Z88.8 Allergy status to other drugs, medicaments and biological substances; Z79.899 Other long term (current) drug therapy
CPT/HCPCS: 84132; 87081; 96372; G0480; J1200; J1630

== ENCOUNTER 2019-08-02 21:12 | Inpatient (IN) | payer MEDICARE, MEDICAID ==
[~2019-08-02] VITALS: Ht 180.3 cm; Wt 103.9 kg
[~2019-08-02 21:12] MED LIST changes: -ARIP15TA2 PO; -CARV12 PO; +CARV25 PO; -CITA-106 PO; +HYDR25TA PO; +HYDR25TA84 PO; -MINO50CA36 PO; -OLAN10TA3 PO; +OLAN7.5T2 PO; +OLAN7.5T9 PO; +VALP250S23 PO
[2019-08-02 22:42] LABS: AMPHET/METH SCREEN,URINE NEGATIVE (NEGATIVE); BARBITURATE SCREEN, URINE NEGATIVE (NEGATIVE); BENZODIAZEPINES SCREEN,URINE NEGATIVE (NEGATIVE); CANNABINOID SCREEN,URINE NEGATIVE (NEGATIVE); COCAINE SCREEN,URINE NEGATIVE (NEGATIVE); METHADONE SCREEN, URINE NEGATIVE (NEGATIVE); OPIATE SCREEN,URINE NEGATIVE (NEGATIVE)
[2019-08-02 22:44] LABS: PHENCYCLIDINE SCREEN,URINE NEGATIVE (NEGATIVE)
[2019-08-02] MEDS ORDERED: ZOLPIDEM TARTRATE 10 MG TABLET PO PRN (23:45)
[2019-08-03 00:30] LABS: BASOPHILS % (AUTO) 0.6 % (0.0-2.0); HEMATOCRIT 40.9 % (41-53); HEMOGLOBIN 13.9 g/dL (13.5-17.5); LYMPHOCYTES # (AUTO) 1.6 K/uL (1.0-4.8); LYMPHOCYTES % (AUTO) 19.1 % (22.0-44.0); MEAN CORPUSCULAR HEMOGLOBIN 30.5 pg (26.0-34.0); MEAN CORPUSCULAR VOLUME 90 fL (80-100); MONOCYTES # (AUTO) 0.7 K/uL (0.1-1.0); MONOCYTES % (AUTO) 8.7 % (2.0-9.0); NEUTROPHILS # (AUTO) 5.7 K/uL (1.8-7.7); NEUTROPHILS % (AUTO) 69.6 % (40.0-70.0); PLATELET COUNT (AUTO) 313 K/uL (150-450); RED BLOOD CELL COUNT(AUTO) 4.56 MIL/uL (4.50-5.90); RED CELL DISTRIBUTION WIDTH 13.6 % (11.5-14.5)
[2019-08-03 00:40] LABS: ANION GAP 8 mmol/L (8-16); CALCIUM, TOTAL 9.6 mg/dL (8.8-10.5); CARBON DIOXIDE 27 mmol/L (22-29); CHLORIDE 102 mmol/L (98-107); CREATININE 1.02 mg/dL (0.60-1.30); GLOMERULAR FILTR. RATE CALC > 60 mL/min (>60); GLUCOSE,RANDOM 119 mg/dL (70-110); POTASSIUM 3.7 mmol/L (3.5-5.1); SODIUM SERUM 137 mmol/L (136-145); UREA NITROGEN, BLOOD 21 mg/dL (7-18)
[2019-08-03 00:43] LABS: ALANINE AMINOTRANSFERASE 74 U/L (12-78); ALBUMIN 3.7 g/dL (3.4-5.0); ALKALINE PHOSPHATASE 109 U/L (46-116); ASPARTATE AMINOTRANSFERASE 64 U/L (15-37); BILIRUBIN,TOTAL 0.4 mg/dL (0.1-1.0); TOTAL PROTEIN, SERUM 7.8 g/dL (6.4-8.2)
[2019-08-03] MEDS ORDERED: INFLUENZA VIRUS VACCINE QVS 2019-20 (3YR+)/PF 60 MCG/0.5 ML SYRINGE IM ONE (03:30)
[2019-08-03 03:34] VITALS: BP 153/92
[2019-08-03] MEDS ORDERED: PNEUMOCOCCAL VACCINE POLYVALENT 0.5 ML VIAL [PPSV23] IM ONE (04:30)
[2019-08-03 07:11] LABS: CHOL/HDL RATIO 2.6 (4.2-7.3); CHOLESTEROL 107 mg/dL (131-200); HDL CHOLESTEROL 41 mg/dL (40-60); LDL CHOL (CALC.) 59 mg/dL (0-130); TRIGLYCERIDES 34 mg/dL (15-150)
[2019-08-03] MEDS: LORazepam 2 MG TABLET PO PRN ×2 (08:08→15:44)
[2019-08-03] MEDS: HALOPERIDOL 5 MG TABLET PO PRN (08:08)
[2019-08-03 10:26] VITALS: BP 155/91
[2019-08-03] MEDS ORDERED: ACETAMINOPHEN 325 MG TABLET PO PRN (10:30)
[2019-08-03] MEDS: CARVEDILOL 25 MG TABLET PO SCH (11:42)
[2019-08-03] MEDS: HydrALAZINE HCL 25 MG TABLET PO SCH (11:42)
[2019-08-03] MEDS: HYDROCHLOROTHIAZIDE 25 MG TABLET PO SCH (11:44)
[2019-08-03] MEDS: VALPROIC ACID 250 MG/5 ML SYRUP UDCUP PO SCH (16:17)
[2019-08-03] MEDS: OLANZapine 7.5 MG TABLET PO SCH (20:19)
[2019-08-03 22:09] VITALS: BP 148/99
[2019-08-04 05:05] VITALS: BP 142/89
[2019-08-04] MEDS: IBUPROFEN 600 MG TABLET PO PRN (05:11)
[2019-08-04] MEDS: LORazepam 2 MG TABLET PO PRN ×3 (05:11→16:56)
[2019-08-04 08:05] VITALS: BP 148/95
[2019-08-04] MEDS: VALPROIC ACID 250 MG/5 ML SYRUP UDCUP PO SCH ×2 (10:38→16:56)
[2019-08-04] MEDS: HALOPERIDOL 5 MG TABLET PO PRN (10:39)
[2019-08-04] MEDS: HydrALAZINE HCL 25 MG TABLET PO SCH (10:39)
[2019-08-04] MEDS: HYDROCHLOROTHIAZIDE 25 MG TABLET PO SCH (10:39)
[2019-08-04] MEDS: CARVEDILOL 25 MG TABLET PO SCH (10:39)
[2019-08-04 16:20] VITALS: BP 141/81
[2019-08-04 16:55] LABS: GLUCOMETER DEV NAME(LOC) 3E.C; GLUCOSE,POINT OF CARE 174 MG/DL (70-110)
[2019-08-04] MEDS: OLANZapine 7.5 MG TABLET PO SCH (20:02)
[2019-08-05] MEDS: LORazepam 2 MG TABLET PO PRN ×2 (09:21→14:48)
[2019-08-05] MEDS: HALOPERIDOL 5 MG TABLET PO PRN ×2 (09:21→14:48)
[2019-08-05] MEDS: VALPROIC ACID 250 MG/5 ML SYRUP UDCUP PO SCH ×2 (09:21→15:58)
[2019-08-05] MEDS: CARVEDILOL 25 MG TABLET PO SCH (09:22)
[2019-08-05] MEDS: HYDROCHLOROTHIAZIDE 25 MG TABLET PO SCH (09:22)
[2019-08-05] MEDS: HydrALAZINE HCL 25 MG TABLET PO SCH (09:22)
[2019-08-05] MEDS: IBUPROFEN 600 MG TABLET PO PRN (10:10)
[2019-08-05] MEDS ORDERED: TraMADol HCL 50 MG TABLET PO PRN (14:45)
[2019-08-05 16:16] VITALS: BP 146/75
[2019-08-05] MEDS: OLANZapine 7.5 MG TABLET PO SCH (20:23)
[2019-08-06] MEDS: CARVEDILOL 25 MG TABLET PO SCH (08:33)
[2019-08-06] MEDS: VALPROIC ACID 250 MG/5 ML SYRUP UDCUP PO SCH ×2 (08:33→16:57)
[2019-08-06] MEDS: HYDROCHLOROTHIAZIDE 25 MG TABLET PO SCH (08:33)
[2019-08-06] MEDS: HydrALAZINE HCL 25 MG TABLET PO SCH (08:33)
[2019-08-06 09:46] VITALS: BP 157/96
[2019-08-06 16:08] VITALS: BP 156/90
[2019-08-06] MEDS: OLANZapine 7.5 MG TABLET PO SCH (20:17)
[2019-08-07] MEDS: VALPROIC ACID 250 MG/5 ML SYRUP UDCUP PO SCH (08:10)
[2019-08-07] MEDS: LORazepam 2 MG TABLET PO PRN (08:10)
[2019-08-07] MEDS: HALOPERIDOL 5 MG TABLET PO PRN (08:10)
[2019-08-07] MEDS: HYDROCHLOROTHIAZIDE 25 MG TABLET PO SCH (08:11)
[2019-08-07] MEDS: HydrALAZINE HCL 25 MG TABLET PO SCH (08:11)
[2019-08-07] MEDS: CARVEDILOL 25 MG TABLET PO SCH (08:11)
[2019-08-07 08:13] VITALS: BP 153/110
[2019-08-07] MEDS ORDERED: VALP250S23 PO (13:06)
== END 2019-08-07 14:50 | disposition home or self-care (01) | DRG 885 ==
LOC: EMS 21:12 → 3EC 08-03 01:00
PROVIDERS: ADMIT Psychiatry & Neurology Psychiatry; ATTEND Psychiatry & Neurology Psychiatry
DX: F20.0 Paranoid schizophrenia (principal); I10 Essential (primary) hypertension; R60.0 Localized edema; Z86.718 Personal history of other venous thrombosis and embolism
CPT/HCPCS: 93970; G0480

== ENCOUNTER 2019-09-12 23:31 | Inpatient (IN) | payer MEDICARE, MEDICAID ==
[~2019-09-12] VITALS: Ht 180.3 cm; Wt 96.6 kg
[~2019-09-12 23:31] MED LIST changes: -AMLO10TA7 PO; -LISI-662 PO; -OLAN7.5T9 PO
[2019-09-13 01:05] LABS: AMPHET/METH SCREEN,URINE NEGATIVE (NEGATIVE); BARBITURATE SCREEN, URINE NEGATIVE (NEGATIVE); BENZODIAZEPINES SCREEN,URINE NEGATIVE (NEGATIVE); CANNABINOID SCREEN,URINE NEGATIVE (NEGATIVE); COCAINE SCREEN,URINE NEGATIVE (NEGATIVE); METHADONE SCREEN, URINE NEGATIVE (NEGATIVE); OPIATE SCREEN,URINE NEGATIVE (NEGATIVE)
[2019-09-13 01:08] LABS: PHENCYCLIDINE SCREEN,URINE NEGATIVE (NEGATIVE)
[2019-09-13 01:13] LABS: BASOPHILS % (AUTO) 0.5 % (0.0-2.0); EOSINOPHILS % (AUTO) 1.5 % (1.0-6.0); HEMATOCRIT 43.8 % (41-53); HEMOGLOBIN 14.5 g/dL (13.5-17.5); LYMPHOCYTES # (AUTO) 1.4 K/uL (1.0-4.8); LYMPHOCYTES % (AUTO) 17.4 % (22.0-44.0); MEAN CORPUSCULAR HEMOGLOBIN 30.2 pg (26.0-34.0); MEAN CORPUSCULAR VOLUME 91 fL (80-100); MONOCYTES # (AUTO) 0.7 K/uL (0.1-1.0); MONOCYTES % (AUTO) 8.8 % (2.0-9.0); NEUTROPHILS # (AUTO) 5.9 K/uL (1.8-7.7); NEUTROPHILS % (AUTO) 71.8 % (40.0-70.0); PLATELET COUNT (AUTO) 235 K/uL (150-450); RED CELL DISTRIBUTION WIDTH 13.1 % (11.5-14.5)
[2019-09-13] MEDS ORDERED: HALOPERIDOL LACTATE 5 MG/ML VIAL IM ONE (01:15)
[2019-09-13] MEDS ORDERED: DiphenhydrAMINE HCL 50 MG/ML VIAL IM ONE (01:15)
[2019-09-13] MEDS ORDERED: CloNIDine 0.2 MG/24 HOUR PATCH TD ONE (01:15)
[2019-09-13] MEDS ORDERED: LORazepam 2 MG/ML VIAL IM ONE (01:15)
[2019-09-13 01:24] LABS: ANION GAP 8 mmol/L (8-16); CALCIUM, TOTAL 9.1 mg/dL (8.8-10.5); CARBON DIOXIDE 29 mmol/L (22-29); CHLORIDE 103 mmol/L (98-107); CREATININE 1.05 mg/dL (0.60-1.30); GLOMERULAR FILTR. RATE CALC > 60 mL/min (>60); GLUCOSE,RANDOM 95 mg/dL (70-110); POTASSIUM 3.5 mmol/L (3.5-5.1); SODIUM SERUM 140 mmol/L (136-145); UREA NITROGEN, BLOOD 10 mg/dL (7-18)
[2019-09-13 01:27] LABS: ALANINE AMINOTRANSFERASE 69 U/L (12-78); ALBUMIN 4.1 g/dL (3.4-5.0); ALKALINE PHOSPHATASE 92 U/L (46-116); ASPARTATE AMINOTRANSFERASE 66 U/L (15-37); BILIRUBIN,TOTAL 0.4 mg/dL (0.1-1.0); TOTAL PROTEIN, SERUM 7.8 g/dL (6.4-8.2)
[2019-09-13] MEDS ORDERED: ZOLPIDEM TARTRATE 10 MG TABLET PO PRN (03:00)
[2019-09-13 04:44] LABS: APPEARANCE,URINE TURBID (CLEAR); BILIRUBIN,URINE NEGATIVE (NEGATIVE); GLUCOSE, URINE (UA) NEGATIVE (NEGATIVE); KETONES,URINE TRACE mg/dL (NEGATIVE); LEUKOCYTE ESTERASE ,URINE NEGATIVE (NEGATIVE); NITRATE,URINE NEGATIVE (NEGATIVE); OCCULT BLOOD,URINE NEGATIVE (NEGATIVE); PROTEIN,URINE NEGATIVE (NEGATIVE)
[2019-09-13] MEDS ORDERED: MAG HYDROX/AL HYDROX/SIMETH ES 30 ML SUSPENSION UDCUP PO PRN (05:15)
[2019-09-13] MEDS ORDERED: ACETAMINOPHEN 325 MG TABLET PO PRN (05:15)
[2019-09-13] MEDS ORDERED: ALBUTEROL SULFATE HFA 90 MCG/PUFF 8 GM INHALER IH PRN (05:15)
[2019-09-13] MEDS ORDERED: BENZOCAINE/MENTHOL LOZENGE MM PRN (05:15)
[2019-09-13] MEDS ORDERED: PETROLATUM,WHITE 28 GM JELLY TP PRN (05:15)
[2019-09-13] MEDS ORDERED: MAGNESIUM HYDROXIDE SUSPENSION 30 ML UDCUP PO PRN (05:15)
[2019-09-13] MEDS ORDERED: LOPERAMIDE HCL 2 MG CAPSULE PO PRN (05:15)
[2019-09-13] MEDS ORDERED: BACITRACIN 28.4 GM OINTMENT TP PRN (05:15)
[2019-09-13] MEDS ORDERED: ONDANSETRON HCL 4 MG TABLET PO PRN (05:15)
[2019-09-13] MEDS ORDERED: IBUPROFEN 600 MG TABLET PO PRN (05:15)
[2019-09-13] MEDS ORDERED: PNEUMOCOCCAL VACCINE POLYVALENT 0.5 ML VIAL [PPSV23] IM ONE (05:15)
[2019-09-13] MEDS ORDERED: CloNIDine HCL 0.1 MG TABLET PO PRN (05:15)
[2019-09-13] MEDS: OMEPRAZOLE 20 MG CAPSULE PO SCH (09:00)
[2019-09-13] MEDS ORDERED: CARVEDILOL 25 MG TABLET PO SCH ×2 (09:00→17:00)
[2019-09-13] MEDS: VALPROIC ACID 250 MG/5 ML SYRUP UDCUP PO SCH ×2 (09:00→16:24)
[2019-09-13] MEDS: DOCUSATE SODIUM 100 MG CAPSULE PO SCH (09:01)
[2019-09-13] MEDS: HYDROCHLOROTHIAZIDE 25 MG TABLET PO SCH (09:01)
[2019-09-13 16:23] VITALS: BP 148/98
[2019-09-13] MEDS: NYSTATIN 30 GM OINTMENT TP SCH (16:24)
[2019-09-13] MEDS: HALOPERIDOL 5 MG TABLET PO PRN (16:39)
[2019-09-13] MEDS: LORazepam 2 MG TABLET PO PRN (16:39)
[2019-09-14] MEDS: VALPROIC ACID 250 MG/5 ML SYRUP UDCUP PO SCH ×2 (07:20→17:01)
[2019-09-14] MEDS: HYDROCHLOROTHIAZIDE 25 MG TABLET PO SCH (07:20)
[2019-09-14] MEDS: DOCUSATE SODIUM 100 MG CAPSULE PO SCH (07:20)
[2019-09-14] MEDS: OMEPRAZOLE 20 MG CAPSULE PO SCH (07:20)
[2019-09-14] MEDS: LORazepam 2 MG TABLET PO PRN (07:20)
[2019-09-14] MEDS: RisperiDONE CONC 3 MG/3 ML SOLUTION ORAL.SYG PO SCH ×2 (07:21→17:01)
[2019-09-14] MEDS: CARVEDILOL 25 MG TABLET PO SCH (07:21)
[2019-09-14] MEDS: NYSTATIN 30 GM OINTMENT TP SCH ×2 (07:21→17:02)
[2019-09-14] MEDS: HALOPERIDOL 5 MG TABLET PO PRN (07:22)
[2019-09-14 08:00] VITALS: BP 168/79
[2019-09-14 08:30] LABS: CHOL/HDL RATIO 3.1 (4.2-7.3)
[2019-09-14 19:37] VITALS: BP 142/78
[2019-09-15] MEDS: HALOPERIDOL 5 MG TABLET PO PRN ×2 (07:58→19:39)
[2019-09-15] MEDS: LORazepam 2 MG TABLET PO PRN ×2 (07:58→19:39)
[2019-09-15] MEDS: VALPROIC ACID 250 MG/5 ML SYRUP UDCUP PO SCH ×2 (08:17→16:54)
[2019-09-15] MEDS: OMEPRAZOLE 20 MG CAPSULE PO SCH (08:17)
[2019-09-15] MEDS: RisperiDONE CONC 3 MG/3 ML SOLUTION ORAL.SYG PO SCH ×2 (08:17→16:54)
[2019-09-15] MEDS: HYDROCHLOROTHIAZIDE 25 MG TABLET PO SCH (08:17)
[2019-09-15] MEDS: DOCUSATE SODIUM 100 MG CAPSULE PO SCH (08:17)
[2019-09-15] MEDS: CARVEDILOL 25 MG TABLET PO SCH (08:17)
[2019-09-15] MEDS: NYSTATIN 30 GM OINTMENT TP SCH ×2 (08:18→16:55)
[2019-09-16] MEDS: NYSTATIN 30 GM OINTMENT TP SCH ×2 (08:05→21:20)
[2019-09-16] MEDS: HYDROCHLOROTHIAZIDE 25 MG TABLET PO SCH (08:06)
[2019-09-16] MEDS: VALPROIC ACID 250 MG/5 ML SYRUP UDCUP PO SCH ×2 (08:06→21:20)
[2019-09-16] MEDS: OMEPRAZOLE 20 MG CAPSULE PO SCH (08:06)
[2019-09-16] MEDS: RisperiDONE CONC 3 MG/3 ML SOLUTION ORAL.SYG PO SCH ×2 (08:06→21:20)
[2019-09-16] MEDS: CARVEDILOL 25 MG TABLET PO SCH (08:07)
[2019-09-16] MEDS: DOCUSATE SODIUM 100 MG CAPSULE PO SCH (08:07)
[2019-09-16] MEDS: LORazepam 2 MG TABLET PO PRN (08:12)
[2019-09-16] MEDS: HALOPERIDOL 5 MG TABLET PO PRN (08:13)
[2019-09-16] MEDS ORDERED: DiphenhydrAMINE HCL 50 MG/ML VIAL IM ONE (14:45)
[2019-09-16] MEDS ORDERED: HALOPERIDOL LACTATE 5 MG/ML VIAL IM ONE (14:45)
[2019-09-16] MEDS ORDERED: LORazepam 2 MG/ML VIAL IM ONE (14:45)
[2019-09-17] MEDS: CARVEDILOL 25 MG TABLET PO SCH (09:21)
[2019-09-17] MEDS: VALPROIC ACID 250 MG/5 ML SYRUP UDCUP PO SCH ×2 (09:21→16:37)
[2019-09-17] MEDS: RisperiDONE CONC 3 MG/3 ML SOLUTION ORAL.SYG PO SCH ×2 (09:22→16:37)
[2019-09-17] MEDS: HYDROCHLOROTHIAZIDE 25 MG TABLET PO SCH (09:22)
[2019-09-17] MEDS: DOCUSATE SODIUM 100 MG CAPSULE PO SCH (09:22)
[2019-09-17] MEDS: OMEPRAZOLE 20 MG CAPSULE PO SCH (09:22)
[2019-09-17] MEDS: NYSTATIN 30 GM OINTMENT TP SCH ×2 (09:23→16:37)
[2019-09-17 09:47] VITALS: BP 164/113
[2019-09-18] MEDS: RisperiDONE CONC 3 MG/3 ML SOLUTION ORAL.SYG PO SCH ×2 (08:21→16:35)
[2019-09-18] MEDS: NYSTATIN 30 GM OINTMENT TP SCH ×2 (08:21→16:35)
[2019-09-18] MEDS: CARVEDILOL 25 MG TABLET PO SCH (08:21)
[2019-09-18] MEDS: VALPROIC ACID 250 MG/5 ML SYRUP UDCUP PO SCH ×2 (08:23→16:35)
[2019-09-18] MEDS: DOCUSATE SODIUM 100 MG CAPSULE PO SCH (08:23)
[2019-09-18] MEDS: HALOPERIDOL 5 MG TABLET PO PRN ×2 (08:23→17:24)
[2019-09-18] MEDS: HYDROCHLOROTHIAZIDE 25 MG TABLET PO SCH (08:23)
[2019-09-18] MEDS: LORazepam 2 MG TABLET PO PRN ×2 (08:24→17:24)
[2019-09-18] MEDS: OMEPRAZOLE 20 MG CAPSULE PO SCH (08:27)
[2019-09-18 19:25] VITALS: BP 165/121
[2019-09-18] MEDS ORDERED: CARVEDILOL 25 MG TABLET PO SCH (21:00)
[2019-09-18 23:06] VITALS: BP 151/91
[2019-09-19] MEDS: VALPROIC ACID 250 MG/5 ML SYRUP UDCUP PO SCH (07:24)
[2019-09-19] MEDS: LORazepam 2 MG TABLET PO PRN (07:25)
[2019-09-19] MEDS: OMEPRAZOLE 20 MG CAPSULE PO SCH (07:25)
[2019-09-19] MEDS: DOCUSATE SODIUM 100 MG CAPSULE PO SCH (07:25)
[2019-09-19] MEDS: HYDROCHLOROTHIAZIDE 25 MG TABLET PO SCH (07:25)
[2019-09-19] MEDS: RisperiDONE CONC 3 MG/3 ML SOLUTION ORAL.SYG PO SCH (07:25)
[2019-09-19] MEDS: HALOPERIDOL 5 MG TABLET PO PRN (07:25)
[2019-09-19] MEDS: NYSTATIN 30 GM OINTMENT TP SCH (07:25)
[2019-09-19 08:49] VITALS: BP 152/97
[2019-09-19] MEDS ORDERED: CARVEDILOL 25 MG TABLET PO SCH (09:00)
[2019-09-19] MEDS ORDERED: CARV25 PO (14:35)
[2019-09-19] MEDS ORDERED: NYST30CR9 TP (14:36)
[2019-09-19] MEDS ORDERED: DOCU-275 PO (14:36)
[2019-09-19] MEDS ORDERED: OMEP20 PO (14:38)
[2019-09-19] MEDS ORDERED: RISP3 PO (14:40)
== END 2019-09-19 16:30 | disposition short-term general hospital (02) | DRG 885 ==
LOC: EMS 23:31 → 3EC 09-13 03:00
PROVIDERS: ADMIT Psychiatry & Neurology Psychiatry; ATTEND Psychiatry & Neurology Psychiatry
DX: F20.0 Paranoid schizophrenia (principal); I10 Essential (primary) hypertension; Z91.14 Patient's other noncompliance with medication regimen; Z91.19 Patient's noncompliance with other medical treatment and regimen; Z68.29 Body mass index [BMI] 29.0-29.9, adult; E66.9 Obesity, unspecified; K21.9 Gastro-esophageal reflux disease without esophagitis; K59.00 Constipation, unspecified; R74.0 Nonspecific elevation of levels of transaminase and lactic acid dehydrogenase [LDH]; Z28.21 Immunization not carried out because of patient refusal
CPT/HCPCS: 51701; G0480; J1200; J1630; J2060

== ENCOUNTER 2024-08-14 09:47 | Emergency (ER) | payer MEDICARE, OTHER ==
[~2024-08-14] VITALS: Ht 172.7 cm; Wt 62.7 kg
[~2024-08-14 09:47] MED LIST changes: +DOCU-385 PO; +NYST30CR9 TP; -OLAN7.5T2 PO; +OMEP-148 PO; +RISP3TAB35 PO
[2024-08-14 10:20] VITALS: TEMP 98.6
[2024-08-14 10:50] LABS: BASOPHILS % (AUTO) 0.7 % (0.0-2.0); EOSINOPHILS % (AUTO) 1.7 % (1.0-6.0); HEMATOCRIT 39.5 % (41-53); HEMOGLOBIN 12.9 g/dL (13.5-17.5); MEAN CORPUSCULAR HEMOGLOBIN 31.2 pg (26.0-34.0); MEAN CORPUSCULAR HGB CONC 32.6 G/dL (31.0-37.0); MEAN CORPUSCULAR VOLUME 96 fL (80-100); MONOCYTES # (AUTO) 1.1 K/uL (0.1-1.0); MONOCYTES % (AUTO) 11.1 % (2.0-9.0); NEUTROPHILS # (AUTO) 5.6 K/uL (1.8-7.7); NEUTROPHILS % (AUTO) 56.5 % (40.0-70.0); PLATELET COUNT (AUTO) 229 K/uL (150-450); RED BLOOD CELL COUNT(AUTO) 4.13 MIL/uL (4.50-5.90); RED CELL DISTRIBUTION WIDTH 14.1 % (11.5-14.5); WHITE BLOOD COUNT (AUTO) 9.8 K/uL (4.5-11.0)
[2024-08-14 10:58] LABS: ANION GAP 10 mmol/L (8-16); CALCIUM, TOTAL 9.1 mg/dL (8.8-10.5); CARBON DIOXIDE 27 mmol/L (22-29); CHLORIDE 106 mmol/L (98-107); CREATININE 1.21 mg/dL (0.60-1.30); GLOMERULAR FILTR. RATE CALC > 60 mL/min (>60); GLUCOSE,RANDOM 92 mg/dL (70-110); LIPASE 41 U/L (16-77); POTASSIUM 3.6 mmol/L (3.5-5.1); SODIUM SERUM 143 mmol/L (136-145); UREA NITROGEN, BLOOD 11 mg/dL (7-18)
[2024-08-14 11:04] LABS: ALBUMIN 3.2 g/dL (3.4-5.0); BILIRUBIN,DIRECT 0.2 mg/dL (0.00-0.20); BILIRUBIN,TOTAL 0.5 mg/dL (0.1-1.0); TOTAL PROTEIN, SERUM 7.9 g/dL (6.4-8.2)
[2024-08-14] MEDS ORDERED: METO-416 PO (11:34)
[2024-08-14] MEDS ORDERED: LISI40TA9 PO (11:34)
[2024-08-14] MEDS ORDERED: MEDR150V13 IM (11:34)
[2024-08-14] MEDS ORDERED: LITH450T25 PO (11:34)
[2024-08-14] MEDS ORDERED: TAMS0.4C94 PO (11:34)
[2024-08-14] MEDS ORDERED: HALO100V36 IM (11:34)
[2024-08-14] MEDS ORDERED: AMLO10TA55 PO (11:34)
[2024-08-14] MEDS ORDERED: OLAN10TA74 PO (11:34)
[2024-08-14] MEDS ORDERED: LEVO175T9 PO (11:34)
[2024-08-14] MEDS ORDERED: DIVA-153 PO (11:34)
[2024-08-14] MEDS ORDERED: PRAZ2 PO (11:34)
[2024-08-14] MEDS: METOCLOPRAMIDE HCL 10 MG TABLET PO ONE (11:47)
[2024-08-14 12:03] LABS: APPEARANCE,URINE CLEAR (CLEAR); BILIRUBIN,URINE NEGATIVE (NEGATIVE); COLOR,URINE YELLOW (YELLOW); GLUCOSE, URINE (UA) NEGATIVE (NEGATIVE); KETONES,URINE TRACE mg/dL (NEGATIVE); LEUKOCYTE ESTERASE ,URINE NEGATIVE (NEGATIVE); NITRATE,URINE NEGATIVE (NEGATIVE); OCCULT BLOOD,URINE NEGATIVE (NEGATIVE); PROTEIN,URINE 30-70 mg/dL (NEGATIVE); SPECIFIC GRAVITIY, URINE 1.015 (1.003-1.030); UROBILINOGEN,URINE <=1.0 mg/dL (<=1.0)
[2024-08-14] MEDS ORDERED: PROC5TAB54 PO (12:29)
[2024-08-14 12:46] VITALS: BP 149/92; PULSE 91; RESP 18; O2SAT 99
== END 2024-08-14 12:47 | disposition home or self-care (01) ==
LOC: EMS 09:47
DX: R11.2 Nausea with vomiting, unspecified (principal); F20.9 Schizophrenia, unspecified; F31.9 Bipolar disorder, unspecified; I10 Essential (primary) hypertension; Z79.899 Other long term (current) drug therapy
CPT/HCPCS: 80048; 80076; 81003; 83690; 85025; 99283